=== PATIENT | male | born 1960 | race Caucasian/White ===

== ENCOUNTER 2021-01-12 11:17 | Inpatient (IN) | payer OTHER ==
[2021-01-12] MEDS ORDERED: NS 0.9% w/ 20 MEQ KCL 1,000 ML ONE (11:33)
[2021-01-12] MEDS ORDERED: INSULIN REGULAR IN 0.9 % NACL 100 UNIT/100 ML BAG ONE (11:49)
[2021-01-12] MEDS ORDERED: Lorazepam 2 MG/ML VIAL IM PRN (12:35)
[2021-01-12] MEDS ORDERED: Sodium Chloride 0.9% 1,000 ML IV PRN (12:35)
[2021-01-12] MEDS ORDERED: NS 0.9% w/ 20 MEQ KCL 1,000 ML IV PRN (12:35)
[2021-01-12] MEDS ORDERED: D5 1/2 NS w/20 mEq KCL 1,000 ML IV PRN (12:35)
[2021-01-12] MEDS ORDERED: Lorazepam 1 MG TAB PO PRN (12:35)
[2021-01-12] MEDS ORDERED: Electrolyte Replacement Protocol 1 EACH IVPB SCH (12:35)
[2021-01-12] MEDS ORDERED: Dextrose 5 %-0.45 % NaCl 1,000 ML IV PRN (12:35)
[2021-01-12] MEDS ORDERED: HUMULIN R 100 UNITS in Sodium Chloride 0.9% 100 ML IVPB SCH (12:45)
[2021-01-12 13:02] LABS: Actual Bicarbonate (HCO3a) 6.9 mEq/L (22-28); Analyzer IN Cardio ER; Base Excess (BEa) -17.1 mEq/L (-2.0 to +3.0); Calcium, Ionized (arterial) 1.22 mmol/L (1.12-1.30); Carboxyhemoglobin (COHb) 0.3 gm% (0.0-3.0); Hemoglobin (Hb) 14.2 g/dL (14.0-18.0); O2 Tension (PaO2), arterial 97.9 mmHg (> 80.0); Potassium - ABG Lab 4.49 mmol/L (3.70-5.30); pH, Arterial 7.28 (7.35-7.45)
[2021-01-12 13:04] LABS: Puncture Site RRA
[2021-01-12 13:20] LABS: Hemoglobin 14.5 g/dL (14.0-18.0); Mean Corpuscular HGB CONC 34.7 g/dL (32.0-36.0); Mean Corpuscular Hemoglobin 34.9 pg (27.0-31.0); Mean Platelet Volume 8.6 fL (7.4-10.4); Platelet Count 283 thou/uL (130-400); RBC Distribution Width 10.8 % (11.5-14.5); Red Blood Cell (RBC) Count 4.16 mill/uL (4.70-6.10); White Blood Cell (WBC) Count 26.3 thou/uL (4.8-10.8)
[2021-01-12 13:39] LABS: Band 18 % (5-11); Lymphocytes 14 % (21-51); MDiff Complete? YES; Monocytes 6 % (0-10); Neutrophil 62 % (42-75); Platelet Morphology Comment Appears Adequate; RBC Morphology Normal; Troponin I Less than 0.010 ng/mL (< 0.028)
[2021-01-12 13:41] LABS: SARS-CoV-2 NAA Rapid Test Not Detected (NotDetected)
[2021-01-12 13:43] LABS: BUN (Urea Nitrogen) 32 mg/dL (8.4-25.7); Calc. Creatinine Clearance 0 mL/min (70-130); Calcium 8.1 mg/dL (7.8-10.44); Chloride 108 mmol/L (98-107); Glucose 502 mg/dL (70-105); Potassium 4.6 mmol/L (3.5-5.1); Sodium 133 mmol/L (136-145)
[2021-01-12 13:44] LABS: ALT (SGPT) 22 U/L (8-55); AST (SGOT) 16 U/L (5-34); Albumin 3.5 g/dL (3.5-5.0); Alkaline Phosphatase 138 U/L (40-110); BUN (Urea Nitrogen) 34 mg/dL (8.4-25.7); Bilirubin, Total 0.3 mg/dL (0.2-1.2); Calc. Creatinine Clearance 0 mL/min (70-130); Calcium 8.3 mg/dL (7.8-10.44); Chloride 109 mmol/L (98-107); Globulin 2.5 g/dL (2.4-3.5); Glucose 520 mg/dL (70-105); Magnesium 1.6 mg/dL (1.6-2.6); Phosphorus 2.8 mg/dL (2.3-4.7); Potassium 4.6 mmol/L (3.5-5.1); Sodium 134 mmol/L (136-145)
[2021-01-12 13:46] LABS: Carbon Dioxide Less than 8 mmol/L (22-29)
[2021-01-12 13:56] LABS: Carbon Dioxide Less than 8 mmol/L (22-29)
[2021-01-12] MEDS ORDERED: Aspirin 325 mg Enteric Coated Tablet PO SCH (14:00)
[2021-01-12] MEDS ORDERED: Multivit, Therapeutic 1 TAB PO SCH (14:00)
[2021-01-12] MEDS ORDERED: Enoxaparin Sodium 40 MG/0.4 ML SYRINGE SC SCH (14:00)
[2021-01-12 14:54] LABS: Actual Bicarbonate (HCO3a) 9.7 mEq/L (22-28); Base Excess (BEa) -14.6 mEq/L (-2.0 to +3.0); Calcium, Ionized (arterial) 1.21 mmol/L (1.12-1.30); Carboxyhemoglobin (COHb) 0.4 gm% (0.0-3.0); Hemoglobin (Hb) 13.5 g/dL (14.0-18.0); Potassium - ABG Lab 4.29 mmol/L (3.70-5.30)
[2021-01-12 15:26] LABS: ALV-art Gradient 48.355 mmHg (0-20); CO2 Tension 20.3 mmHg (35.0-45.0); Puncture Site RRA
[2021-01-12] MEDS: Thiamine HCl 200 MG/2 ML VIAL SLOW IVP SCH (15:44)
[2021-01-12] MEDS: Lorazepam 1 MG TAB PO SCH ×2 (15:44→19:53)
[2021-01-12] MEDS ORDERED: VANCOMYCIN 1.25 GM/250 ML BAG 1.25 GM in Premix Bag 1 BAG IVPB SCH (16:00)
[2021-01-12] MEDS: Sodium Bicarbonate 150 MEQ in Dextrose 5% in Water 1,000 ML IV SCH ×2 (16:11→21:00)
[2021-01-12] MEDS: Scopolamine 1.5 mg/72 hour Patch TD SCH (16:22)
[2021-01-12] MEDS: Cefepime 2 GM in Sodium Chloride 0.9% 100 ML IVPB SCH (16:22)
[2021-01-12 16:33] LABS: Troponin I Less than 0.010 ng/mL (< 0.028)
[2021-01-12 16:53] LABS: Anion Gap 16 mmol/L (10-20); BUN (Urea Nitrogen) 32 mg/dL (8.4-25.7); Calc. Creatinine Clearance 48 mL/min (70-130); Calcium 8.3 mg/dL (7.8-10.44); Carbon Dioxide 13 mmol/L (22-29); Chloride 114 mmol/L (98-107); Glucose 341 mg/dL (70-105); Potassium 4.2 mmol/L (3.5-5.1); Sodium 139 mmol/L (136-145)
[2021-01-12 21:16] LABS: Anion Gap 11 mmol/L (10-20); BUN (Urea Nitrogen) 28 mg/dL (8.4-25.7); Calc. Creatinine Clearance 63 mL/min (70-130); Carbon Dioxide 21 mmol/L (22-29); Chloride 110 mmol/L (98-107); Glucose 239 mg/dL (70-105); Potassium 3.3 mmol/L (3.5-5.1); Sodium 139 mmol/L (136-145)
[2021-01-12] MEDS: Pantoprazole 40 MG VIAL IVP SCH (21:17)
[2021-01-12] MEDS ORDERED: Lantus 1000 UNITS/10 ML VIAL SC SCH (22:00)
[2021-01-12] MEDS: Potassium Chloride 20 MEQ in Premix Bag 1 BAG IVPB SCH (23:09)
[2021-01-12] MEDS ORDERED: Dextrose 50% Abboject 50 ML SYRINGE SLOW IVP PRN (23:19)
[2021-01-12] MEDS ORDERED: Dextrose 5% in Water 1,000 ML IV PRN (23:19)
[2021-01-12] MEDS ORDERED: HumaLOG 300 UNITS/3 ML VIAL SC PRN (23:19)
[2021-01-13] MEDS: Potassium Chloride 20 MEQ in Premix Bag 1 BAG IVPB SCH (01:29)
[2021-01-13] MEDS: Sodium Bicarbonate 150 MEQ in Dextrose 5% in Water 1,000 ML IV SCH ×2 (01:48→06:27)
[2021-01-13] MEDS: Lorazepam 1 MG TAB PO SCH ×4 (02:00→20:13)
[2021-01-13] MEDS: Cefepime 2 GM in Sodium Chloride 0.9% 100 ML IVPB SCH ×3 (03:50→20:39)
[2021-01-13 04:22] LABS: #Neutrophils 12.9 thou/uL (1.40-6.50); %Basophils 0.2 % (0.0-1.0); %Eosinophils 0.3 % (0.0-10.0); %Lymphocytes 12.5 % (21.0-51.0); %Monocytes 6.4 % (0.0-10.0); %Neutrophils 80.6 % (42.0-75.0); Hemoglobin 12.1 g/dL (14.0-18.0); Mean Corpuscular HGB CONC 35.1 g/dL (32.0-36.0); Mean Corpuscular Hemoglobin 34.9 pg (27.0-31.0); Mean Corpuscular Volume 99.4 fL (78.0-98.0); Mean Platelet Volume 8.3 fL (7.4-10.4); Platelet Count 204 thou/uL (130-400); RBC Distribution Width 10.9 % (11.5-14.5); Red Blood Cell (RBC) Count 3.47 mill/uL (4.70-6.10)
[2021-01-13 04:42] LABS: Anion Gap 11 mmol/L (10-20); BUN (Urea Nitrogen) 18 mg/dL (8.4-25.7); Calc. Creatinine Clearance 81 mL/min (70-130); Calcium 8.1 mg/dL (7.8-10.44); Carbon Dioxide 26 mmol/L (22-29); Cardiac Risk 4.3 (Less than 4.5); Chloride 103 mmol/L (98-107); Cholesterol 125 mg/dl (< 200 Desired); Glucose 265 mg/dL (70-105); HDL Cholesterol 29 mg/dL (>60 Neg Risk); LDL Cholesterol, Calculated 85 mg/dL; Potassium 3.3 mmol/L (3.5-5.1); Sodium 137 mmol/L (136-145); Triglycerides 57 mg/dL (Less than 150)
[2021-01-13] MEDS ORDERED: Potassium Chloride 40 MEQ in Sodium Chloride 0.9% 250 ML 250 ML IVPB SCH (07:30)
[2021-01-13] MEDS: Dextrose 5%-Lactated Ringers 1,000 ML IV SCH ×2 (08:02→16:49)
[2021-01-13] MEDS: Folic Acid 1 MG TAB PO SCH (08:06)
[2021-01-13] MEDS: Aspirin 325 mg Enteric Coated Tablet PO SCH (08:06)
[2021-01-13] MEDS: Multivit, Therapeutic 1 TAB PO SCH (08:07)
[2021-01-13] MEDS: Enoxaparin Sodium 40 MG/0.4 ML SYRINGE SC SCH (08:11)
[2021-01-13] MEDS: HumaLOG 300 UNITS/3 ML VIAL SC PRN ×3 (08:57→17:14)
[2021-01-13] MEDS: Lantus 1000 UNITS/10 ML VIAL SC SCH (08:57)
[2021-01-13] MEDS ORDERED: Insulin Glargine 10 UNITS in Pre-Filled Syringe 1 EACH SC SCH (09:00)
[2021-01-13] MEDS ORDERED: Pantoprazole 40 MG VIAL IVP SCH (09:00)
[2021-01-13] MEDS: Pantoprazole 40 MG VIAL IVP SCH ×2 (10:26→21:44)
[2021-01-13 12:25] LABS: Anion Gap 10 mmol/L (10-20); BUN (Urea Nitrogen) 10 mg/dL (8.4-25.7); Calc. Creatinine Clearance 91 mL/min (70-130); Carbon Dioxide 30 mmol/L (22-29); Chloride 102 mmol/L (98-107); Glucose 223 mg/dL (70-105); Sodium 138 mmol/L (136-145)
[2021-01-13] MEDS ORDERED: Lorazepam 1 MG TAB PO PRN (12:35)
[2021-01-13] MEDS: Thiamine HCl 200 MG/2 ML VIAL SLOW IVP SCH (14:03)
[2021-01-13] MEDS: Vancomycin 1 GM in Premix Bag 1 BAG IVPB SCH (17:09)
[2021-01-13] MEDS: Atorvastatin Calcium 40 MG TAB PO SCH (20:13)
[2021-01-14] MEDS: Lorazepam 1 MG TAB PO SCH ×3 (02:10→13:41)
[2021-01-14] MEDS: Dextrose 5%-Lactated Ringers 1,000 ML IV SCH (02:21)
[2021-01-14] MEDS: Cefepime 2 GM in Sodium Chloride 0.9% 100 ML IVPB SCH ×3 (05:01→21:00)
[2021-01-14 05:13] LABS: #Lymphocytes 2.4 thou/uL (1.20-3.40); #Monocytes 0.6 thou/uL (0.11-0.59); #Neutrophils 6.6 thou/uL (1.40-6.50); %Basophils 0.3 % (0.0-1.0); %Eosinophils 0.3 % (0.0-10.0); %Lymphocytes 24.9 % (21.0-51.0); %Neutrophils 68.5 % (42.0-75.0); Hemoglobin 12.8 g/dL (14.0-18.0); Mean Corpuscular Hemoglobin 34.3 pg (27.0-31.0); Mean Platelet Volume 8.7 fL (7.4-10.4); Platelet Count 174 thou/uL (130-400); RBC Distribution Width 10.9 % (11.5-14.5); Red Blood Cell (RBC) Count 3.72 mill/uL (4.70-6.10); White Blood Cell (WBC) Count 9.7 thou/uL (4.8-10.8)
[2021-01-14 05:44] LABS: Anion Gap 9 mmol/L (10-20); BUN (Urea Nitrogen) 6 mg/dL (8.4-25.7); Calc. Creatinine Clearance 114 mL/min (70-130); Calcium 7.7 mg/dL (7.8-10.44); Carbon Dioxide 31 mmol/L (22-29); Chloride 96 mmol/L (98-107); Glucose 246 mg/dL (70-105); Phosphorus 1.1 mg/dL (2.3-4.7); Potassium 2.8 mmol/L (3.5-5.1); Sodium 133 mmol/L (136-145)
[2021-01-14] MEDS: Potassium Chloride 20 MEQ in Premix Bag 1 BAG IVPB SCH ×2 (06:10→09:17)
[2021-01-14] MEDS: Lantus 1000 UNITS/10 ML VIAL SC SCH ×2 (08:23→09:20)
[2021-01-14] MEDS: Folic Acid 1 MG TAB PO SCH (08:23)
[2021-01-14] MEDS: Multivit, Therapeutic 1 TAB PO SCH (08:23)
[2021-01-14] MEDS: Aspirin 325 mg Enteric Coated Tablet PO SCH (08:23)
[2021-01-14] MEDS ORDERED: Amino Acids 4.25 %/Dextrose 5% 2,000 ML BAG IV SCH (09:00)
[2021-01-14] MEDS: Enoxaparin Sodium 40 MG/0.4 ML SYRINGE SC SCH (09:13)
[2021-01-14] MEDS: Pantoprazole 40 MG VIAL IVP SCH ×2 (09:14→21:01)
[2021-01-14] MEDS ORDERED: Potassium Phosphate 9 MMOL in Sodium Chloride 0.9% 100 ML IVPB SCH (10:00)
[2021-01-14] MEDS: Amino Acids 4.25 %/Dextrose 5% 1,000 ML IV SCH ×2 (11:14→21:59)
[2021-01-14 11:54] LABS: Magnesium 1.3 mg/dL (1.6-2.6)
[2021-01-14] MEDS ORDERED: Magnesium 2 GM/50 ML 2 GM in Premix Bag 1 BAG IVPB SCH (12:00)
[2021-01-14 13:20] LABS: Anion Gap 12 mmol/L (10-20); BUN (Urea Nitrogen) 6 mg/dL (8.4-25.7); Calc. Creatinine Clearance 114 mL/min (70-130); Calcium 7.9 mg/dL (7.8-10.44); Carbon Dioxide 28 mmol/L (22-29); Chloride 95 mmol/L (98-107); Glucose 293 mg/dL (70-105); Potassium 3.7 mmol/L (3.5-5.1); Sodium 131 mmol/L (136-145)
[2021-01-14 13:26] LABS: Phosphorus 1.3 mg/dL (2.3-4.7)
[2021-01-14] MEDS ORDERED: Lorazepam 0.5 MG TAB PO SCH (14:00)
[2021-01-14] MEDS ORDERED: Lorazepam 1 MG TAB PO PRN (14:00)
[2021-01-14] MEDS: Thiamine HCl 200 MG/2 ML VIAL SLOW IVP SCH (14:20)
[2021-01-14 15:32] LABS: Vancomycin, Trough 3.8 ug/mL
[2021-01-14] MEDS: Vancomycin 1 GM in Premix Bag 1 BAG IVPB SCH (15:34)
[2021-01-14] MEDS: HumaLOG 300 UNITS/3 ML VIAL SC PRN ×2 (16:45→21:02)
[2021-01-14] MEDS ORDERED: Vancomycin HCl 250 MG in Sodium Chloride 0.9% 100 ML IVPB SCH (18:00)
[2021-01-14] MEDS: Atorvastatin Calcium 40 MG TAB PO SCH (21:02)
[2021-01-15] MEDS: HumaLOG 300 UNITS/3 ML VIAL SC PRN ×4 (01:53→13:13)
[2021-01-15] MEDS ORDERED: VANCOMYCIN 1.25 GM/250 ML BAG 1.25 GM in Premix Bag 1 BAG IVPB SCH (04:00)
[2021-01-15] MEDS: Cefepime 2 GM in Sodium Chloride 0.9% 100 ML IVPB SCH (04:10)
[2021-01-15 04:39] LABS: #Monocytes 0.4 thou/uL (0.11-0.59); #Neutrophils 4.2 thou/uL (1.40-6.50); %Basophils 0.3 % (0.0-1.0); %Eosinophils 0.4 % (0.0-10.0); %Lymphocytes 30.2 % (21.0-51.0); %Monocytes 5.8 % (0.0-10.0); %Neutrophils 63.3 % (42.0-75.0); Hemoglobin 13.8 g/dL (14.0-18.0); Mean Corpuscular HGB CONC 33.9 g/dL (32.0-36.0); Mean Corpuscular Hemoglobin 34.3 pg (27.0-31.0); Mean Platelet Volume 8.5 fL (7.4-10.4); Platelet Count 169 thou/uL (130-400); RBC Distribution Width 10.8 % (11.5-14.5); Red Blood Cell (RBC) Count 4.04 mill/uL (4.70-6.10); White Blood Cell (WBC) Count 6.7 thou/uL (4.8-10.8)
[2021-01-15 05:06] LABS: Anion Gap 11 mmol/L (10-20); BUN (Urea Nitrogen) 13 mg/dL (8.4-25.7); Calc. Creatinine Clearance 103 mL/min (70-130); Calcium 8.1 mg/dL (7.8-10.44); Carbon Dioxide 27 mmol/L (22-29); Chloride 95 mmol/L (98-107); Glucose 237 mg/dL (70-105); Magnesium 1.5 mg/dL (1.6-2.6); Sodium 130 mmol/L (136-145)
[2021-01-15 05:09] LABS: Phosphorus 1.4 mg/dL (2.3-4.7); Potassium 2.7 mmol/L (3.5-5.1)
[2021-01-15] MEDS ORDERED: Potassium Phosphate 12 MMOL in Sodium Chloride 0.9% 100 ML IVPB SCH ×2 (06:00→14:30)
[2021-01-15] MEDS: Potassium Chloride 20 MEQ in Premix Bag 1 BAG IVPB SCH ×2 (06:02→08:50)
[2021-01-15] MEDS ORDERED: Lantus 1000 UNITS/10 ML VIAL SC SCH ×2 (07:25→07:45)
[2021-01-15] MEDS ORDERED: Magnesium 2 GM/50 ML 1 GM in Premix Bag 1 BAG IVPB SCH (07:45)
[2021-01-15] MEDS: Aspirin 325 mg Enteric Coated Tablet PO SCH (08:50)
[2021-01-15] MEDS: Enoxaparin Sodium 40 MG/0.4 ML SYRINGE SC SCH (08:50)
[2021-01-15] MEDS: Pantoprazole 40 MG VIAL IVP SCH ×2 (09:06→21:00)
[2021-01-15] MEDS ORDERED: Thiamine 100 MG TAB PO SCH (14:00)
[2021-01-15] MEDS ORDERED: Lorazepam 0.5 MG TAB PO PRN (14:00)
[2021-01-15 14:02] LABS: Anion Gap 12 mmol/L (10-20); BUN (Urea Nitrogen) 10 mg/dL (8.4-25.7); Calc. Creatinine Clearance 103 mL/min (70-130); Calcium 8.1 mg/dL (7.8-10.44); Carbon Dioxide 23 mmol/L (22-29); Chloride 97 mmol/L (98-107); Glucose 233 mg/dL (70-105); Potassium 3.8 mmol/L (3.5-5.1); Sodium 128 mmol/L (136-145)
[2021-01-15 14:09] LABS: Phosphorus 1.6 mg/dL (2.3-4.7)
[2021-01-15] MEDS ORDERED: Lidocaine 5% Patch TD SCH (14:30)
[2021-01-15] MEDS: Scopolamine 1.5 mg/72 hour Patch TD SCH (15:11)
[2021-01-15] MEDS: Atorvastatin Calcium 40 MG TAB PO SCH (21:24)
[2021-01-15] MEDS: Transdermal Patch Removal TOP SCH (21:26)
[2021-01-16 05:03] LABS: #Basophils 0.1 thou/uL (0.0-0.2); #Eosinphils 0.1 thou/uL (0.0-0.7); #Lymphocytes 2.2 thou/uL (1.20-3.40); #Monocytes 0.4 thou/uL (0.11-0.59); #Neutrophils 3.5 thou/uL (1.40-6.50); %Basophils 0.9 % (0.0-1.0); %Eosinophils 1.3 % (0.0-10.0); %Lymphocytes 35.4 % (21.0-51.0); %Monocytes 5.8 % (0.0-10.0); %Neutrophils 56.6 % (42.0-75.0); Hemoglobin 14.7 g/dL (14.0-18.0); Mean Corpuscular HGB CONC 34.3 g/dL (32.0-36.0); Mean Corpuscular Hemoglobin 34.5 pg (27.0-31.0); Mean Platelet Volume 8.6 fL (7.4-10.4); Platelet Count 180 thou/uL (130-400); RBC Distribution Width 10.9 % (11.5-14.5); Red Blood Cell (RBC) Count 4.25 mill/uL (4.70-6.10); White Blood Cell (WBC) Count 6.2 thou/uL (4.8-10.8)
[2021-01-16 05:24] LABS: Anion Gap 13 mmol/L (10-20); BUN (Urea Nitrogen) 8 mg/dL (8.4-25.7); Calc. Creatinine Clearance 101 mL/min (70-130); Calcium 8.4 mg/dL (7.8-10.44); Carbon Dioxide 25 mmol/L (22-29); Chloride 97 mmol/L (98-107); Glucose 196 mg/dL (70-105); Magnesium 1.6 mg/dL (1.6-2.6); Potassium 3.1 mmol/L (3.5-5.1); Sodium 132 mmol/L (136-145)
[2021-01-16] MEDS: Potassium Chloride 20 MEQ in Premix Bag 1 BAG IVPB SCH ×2 (06:54→08:57)
[2021-01-16] MEDS ORDERED: Magnesium 2 GM/50 ML 1 GM in Premix Bag 1 BAG IVPB SCH (07:30)
[2021-01-16] MEDS: Pantoprazole 40 MG VIAL IVP SCH ×2 (08:56→22:06)
[2021-01-16] MEDS: Aspirin 325 mg Enteric Coated Tablet PO SCH (08:56)
[2021-01-16] MEDS: Lantus 1000 UNITS/10 ML VIAL SC SCH (08:57)
[2021-01-16] MEDS: Enoxaparin Sodium 40 MG/0.4 ML SYRINGE SC SCH (08:57)
[2021-01-16] MEDS: Lidocaine 5% Patch TD SCH (08:58)
[2021-01-16] MEDS ORDERED: Lantus 1000 UNITS/10 ML VIAL SC SCH ×2 (09:00)
[2021-01-16 09:15] LABS: Phosphorus 1.7 mg/dL (2.3-4.7)
[2021-01-16] MEDS ORDERED: Potassium Phosphate 9 MMOL in Sodium Chloride 0.9% 100 ML IVPB SCH (10:25)
[2021-01-16] MEDS: HumaLOG 300 UNITS/3 ML VIAL SC PRN ×3 (11:14→20:39)
[2021-01-16] MEDS: Atorvastatin Calcium 40 MG TAB PO SCH (20:38)
[2021-01-16] MEDS: Transdermal Patch Removal TOP SCH (20:45)
[2021-01-17 05:16] LABS: Anion Gap 14 mmol/L (10-20); BUN (Urea Nitrogen) 9 mg/dL (8.4-25.7); Calc. Creatinine Clearance 103 mL/min (70-130); Calcium 8.6 mg/dL (7.8-10.44); Carbon Dioxide 23 mmol/L (22-29); Chloride 100 mmol/L (98-107); Glucose 194 mg/dL (70-105); Potassium 3.5 mmol/L (3.5-5.1); Sodium 133 mmol/L (136-145)
[2021-01-17 05:20] LABS: Phosphorus 1.9 mg/dL (2.3-4.7)
[2021-01-17] MEDS ORDERED: Potassium Phosphate 9 MMOL in Sodium Chloride 0.9% 100 ML IVPB SCH (05:30)
[2021-01-17 05:34] LABS: Magnesium 1.5 mg/dL (1.6-2.6)
[2021-01-17 08:06] VITALS: BMI 16.7
[2021-01-17] MEDS: Enoxaparin Sodium 40 MG/0.4 ML SYRINGE SC SCH (10:51)
[2021-01-17] MEDS: Aspirin 325 mg Enteric Coated Tablet PO SCH (10:53)
[2021-01-17] MEDS: Pantoprazole 40 MG VIAL IVP SCH ×2 (10:54→21:55)
[2021-01-17] MEDS: Lidocaine 5% Patch TD SCH (10:56)
[2021-01-17] MEDS: Lantus 1000 UNITS/10 ML VIAL SC SCH (10:56)
[2021-01-17] MEDS: HumaLOG 300 UNITS/3 ML VIAL SC PRN ×3 (10:56→17:03)
[2021-01-17] MEDS: Atorvastatin Calcium 40 MG TAB PO SCH (21:19)
[2021-01-17] MEDS: Transdermal Patch Removal TOP SCH (21:20)
[2021-01-18 07:51] LABS: Anion Gap 12 mmol/L (10-20); BUN (Urea Nitrogen) 9 mg/dL (8.4-25.7); Calc. Creatinine Clearance 110 mL/min (70-130); Calcium 8.7 mg/dL (7.8-10.44); Carbon Dioxide 23 mmol/L (22-29); Chloride 102 mmol/L (98-107); Glucose 139 mg/dL (70-105); Magnesium 1.5 mg/dL (1.6-2.6); Phosphorus 2.4 mg/dL (2.3-4.7); Potassium 3.4 mmol/L (3.5-5.1); Sodium 134 mmol/L (136-145)
[2021-01-18] MEDS: Enoxaparin Sodium 40 MG/0.4 ML SYRINGE SC SCH (08:24)
[2021-01-18] MEDS: Aspirin 325 MG TAB PO SCH (08:24)
[2021-01-18] MEDS: Lantus 1000 UNITS/10 ML VIAL SC SCH (08:25)
[2021-01-18] MEDS: Lidocaine 5% Patch TD SCH (08:25)
[2021-01-18] MEDS ORDERED: Acetaminophen 325 MG TAB PO PRN (08:53)
[2021-01-18] MEDS ORDERED: Potassium Chloride 20 MEQ TAB PO SCH (09:00)
[2021-01-18] MEDS ORDERED: Magnesium 2 GM/50 ML 2 GM in Premix Bag 1 BAG IVPB SCH (09:00)
[2021-01-18] MEDS: Pantoprazole 40 MG VIAL IVP SCH ×2 (09:36→21:23)
[2021-01-18] MEDS: Polyethylene Glycol 3350 17 GM Packet PO SCH (09:37)
[2021-01-18] MEDS: Senokot S 8.6-50 MG TAB PO SCH ×2 (09:37→20:58)
[2021-01-18] MEDS ORDERED: Milk Of Magnesia 30 ML UDCUP PO PRN (10:25)
[2021-01-18] MEDS ORDERED: Milk Of Magnesia 30 ML UDCUP PO SCH (11:15)
[2021-01-18] MEDS: HumaLOG 300 UNITS/3 ML VIAL SC PRN (12:16)
[2021-01-18] MEDS: Scopolamine 1.5 mg/72 hour Patch TD SCH (14:54)
[2021-01-18] MEDS: Atorvastatin Calcium 40 MG TAB PO SCH (20:58)
[2021-01-18] MEDS: Transdermal Patch Removal TOP SCH (20:59)
[2021-01-19 07:20] LABS: Anion Gap 11 mmol/L (10-20); BUN (Urea Nitrogen) 9 mg/dL (8.4-25.7); Calc. Creatinine Clearance 106 mL/min (70-130); Calcium 8.8 mg/dL (7.8-10.44); Carbon Dioxide 25 mmol/L (22-29); Chloride 101 mmol/L (98-107); Glucose 110 mg/dL (70-105); Phosphorus 2.9 mg/dL (2.3-4.7); Potassium 3.2 mmol/L (3.5-5.1); Sodium 134 mmol/L (136-145)
[2021-01-19 08:07] LABS: Magnesium 1.5 mg/dL (1.6-2.6)
[2021-01-19] MEDS ORDERED: Magnesium 2 GM/50 ML 2 GM in Premix Bag 1 BAG IVPB SCH (08:45)
[2021-01-19] MEDS ORDERED: Potassium Chloride 20 MEQ TAB PO SCH (09:00)
[2021-01-19] MEDS: Senokot S 8.6-50 MG TAB PO SCH ×2 (09:03→20:39)
[2021-01-19] MEDS: Aspirin 325 MG TAB PO SCH (09:03)
[2021-01-19] MEDS: Pantoprazole 40 MG VIAL IVP SCH ×2 (09:05→21:56)
[2021-01-19] MEDS: Lidocaine 5% Patch TD SCH (09:05)
[2021-01-19] MEDS: Polyethylene Glycol 3350 17 GM Packet PO SCH (09:05)
[2021-01-19] MEDS: Enoxaparin Sodium 40 MG/0.4 ML SYRINGE SC SCH (09:05)
[2021-01-19] MEDS: Lantus 1000 UNITS/10 ML VIAL SC SCH (09:05)
[2021-01-19] MEDS ORDERED: Milk Of Magnesia 30 ML UDCUP PO SCH (09:15)
[2021-01-19] MEDS: HumaLOG 300 UNITS/3 ML VIAL SC PRN ×2 (11:10→16:59)
[2021-01-19 17:01] LABS: SARS-CoV-2 PCR by NAA Not Detected (NotDetected)
[2021-01-19] MEDS: Atorvastatin Calcium 40 MG TAB PO SCH (20:39)
[2021-01-19] MEDS: Transdermal Patch Removal TOP SCH (20:40)
[2021-01-20 06:46] LABS: Anion Gap 12 mmol/L (10-20); BUN (Urea Nitrogen) 10 mg/dL (8.4-25.7); Calc. Creatinine Clearance 101 mL/min (70-130); Calcium 8.7 mg/dL (7.8-10.44); Carbon Dioxide 24 mmol/L (22-29); Chloride 105 mmol/L (98-107); Glucose 127 mg/dL (70-105); Potassium 3.5 mmol/L (3.5-5.1); Sodium 137 mmol/L (136-145)
[2021-01-20] MEDS: Senokot S 8.6-50 MG TAB PO SCH ×2 (09:47→20:30)
[2021-01-20] MEDS: Aspirin 325 MG TAB PO SCH (09:47)
[2021-01-20] MEDS: Enoxaparin Sodium 40 MG/0.4 ML SYRINGE SC SCH (09:48)
[2021-01-20] MEDS: Lidocaine 5% Patch TD SCH (09:48)
[2021-01-20] MEDS: Polyethylene Glycol 3350 17 GM Packet PO SCH (09:48)
[2021-01-20] MEDS: Lantus 1000 UNITS/10 ML VIAL SC SCH (09:49)
[2021-01-20] MEDS: Pantoprazole 40 MG VIAL IVP SCH ×2 (11:43→20:30)
[2021-01-20] MEDS: Atorvastatin Calcium 40 MG TAB PO SCH (20:30)
[2021-01-20] MEDS: Transdermal Patch Removal TOP SCH (20:31)
[2021-01-20] MEDS: HumaLOG 300 UNITS/3 ML VIAL SC PRN (20:41)
[2021-01-21 05:54] LABS: Anion Gap 11 mmol/L (10-20); BUN (Urea Nitrogen) 12 mg/dL (8.4-25.7); Calc. Creatinine Clearance 108 mL/min (70-130); Calcium 8.6 mg/dL (7.8-10.44); Carbon Dioxide 24 mmol/L (22-29); Chloride 106 mmol/L (98-107); Glucose 114 mg/dL (70-105); Potassium 3.3 mmol/L (3.5-5.1); Sodium 138 mmol/L (136-145)
[2021-01-21 07:41] VITALS: BP 135/83; TEMP 97.7
[2021-01-21 08:12] LABS: Magnesium 1.4 mg/dL (1.6-2.6)
[2021-01-21] MEDS: Aspirin 325 MG TAB PO SCH (08:26)
[2021-01-21] MEDS: Lidocaine 5% Patch TD SCH (08:26)
[2021-01-21] MEDS: Lantus 1000 UNITS/10 ML VIAL SC SCH (08:26)
[2021-01-21] MEDS: Enoxaparin Sodium 40 MG/0.4 ML SYRINGE SC SCH (08:26)
[2021-01-21] MEDS: Senokot S 8.6-50 MG TAB PO SCH (08:26)
[2021-01-21] MEDS: Polyethylene Glycol 3350 17 GM Packet PO SCH (08:27)
[2021-01-21] MEDS ORDERED: Potassium Chloride 20 MEQ TAB PO SCH (09:30)
[2021-01-21] MEDS ORDERED: Magnesium 2 GM/50 ML 2 GM in Premix Bag 1 BAG IVPB SCH (09:30)
[2021-01-21] MEDS ORDERED: Magnesium Citrate 300 ML BOT PO SCH (10:15)
[2021-01-21 10:35] LABS: Phosphorus 3.3 mg/dL (2.3-4.7)
[2021-01-21] MEDS: Pantoprazole 40 MG VIAL IVP SCH (11:53)
== END 2021-01-21 15:58 | disposition hospice, home (50) | DRG 871 ==
LOC: ERS 11:17 → CCU 12:16 → 2NO 01-13 14:29 → T4-A 01-17 18:16
PROVIDERS: ADMIT Student in an Organized Health Care Education/Training Program; ATTEND Student in an Organized Health Care Education/Training Program
DX: A41.9 Sepsis, unspecified organism (principal); G93.41 Metabolic encephalopathy; E11.11 Type 2 diabetes mellitus with ketoacidosis with coma; Z66 Do not resuscitate; Z20.822 Contact with and (suspected) exposure to COVID-19; N17.9 Acute kidney failure, unspecified; E44.0 Moderate protein-calorie malnutrition; K86.0 Alcohol-induced chronic pancreatitis; F17.210 Nicotine dependence, cigarettes, uncomplicated; I65.29 Occlusion and stenosis of unspecified carotid artery; K52.9 Noninfective gastroenteritis and colitis, unspecified; E87.8 Other disorders of electrolyte and fluid balance, not elsewhere classified; E87.6 Hypokalemia; E83.42 Hypomagnesemia; T14.8XXA Other injury of unspecified body region, initial encounter; W18.30XA Fall on same level, unspecified, initial encounter; R29.6 Repeated falls; J43.9 Emphysema, unspecified; T68.XXXA Hypothermia, initial encounter; F10.20 Alcohol dependence, uncomplicated; R13.10 Dysphagia, unspecified; E83.39 Other disorders of phosphorus metabolism; Z68.1 Body mass index [BMI] 19.9 or less, adult; Z90.49 Acquired absence of other specified parts of digestive tract; Z95.5 Presence of coronary angioplasty implant and graft; Z86.73 Personal history of transient ischemic attack (TIA), and cerebral infarction without residual deficits; Z91.041 Radiographic dye allergy status; S22.31XD Fracture of one rib, right side, subsequent encounter for fracture with routine healing
CPT/HCPCS: 36415; 36416; 36600; 70551; 80048; 80061; 80202; 82010; 82805; 83036; 83735; 84100; 84443; 85025; 95712; 95819; 95957; 96365; 96366; C9113; J0692; J1650; J1815; J3370; J3411; J3475; J3480; J3490; J7050; J7070; U0002; U0003; U0005